=== PATIENT | male | born 1980 | race African-American/Black ===

== ENCOUNTER 2017-07-05 18:14 | Emergency (ER) | payer MEDICAID ==
[~2017-07-05] VITALS: Ht 180.3 cm; Wt 168.0 kg
[2017-07-05 21:40] LABS: CLARITY URINE CLEAR (CLEAR); COLOR URINE YELLOW (YELLOW); GLUCOSE URINE NEGATIVE (NEGATIVE); KETONES URINE NEGATIVE (NEGATIVE); LEUKOCYTE ESTERASE URINE 2+ (NEGATIVE); NITRITE URINE NEGATIVE (NEGATIVE); OCCULT BLOOD URINE 2+ (NEGATIVE); PROTEIN URINE TRACE (NEGATIVE); SPECIFIC GRAVITY URINE 1.016 (1.005-1.030)
[2017-07-06] MEDS ORDERED: LIDOCAINE HCL 1% 20ML VIAL (Pyxis) INJ INFIL ONE (00:45)
[2017-07-06] MEDS ORDERED: CEFTRIAXONE SODIUM 1 G/VIAL IM ONE (00:45)
[2017-07-06 01:00] VITALS: BP 145/93
== END 2017-07-06 01:17 | disposition home or self-care (01) ==
LOC: ER 18:14
DX: N39.0 Urinary tract infection, site not specified (principal); M54.9 Dorsalgia, unspecified; E78.00 Pure hypercholesterolemia, unspecified; I11.0 Hypertensive heart disease with heart failure; F17.210 Nicotine dependence, cigarettes, uncomplicated
CPT/HCPCS: 76770; 81001; 96372; 99285; J0696; J3490

== ENCOUNTER 2020-11-08 14:41 | Inpatient (IN) | payer MEDICAID ==
[~2020-11-08] VITALS: Ht 172.7 cm; Wt 142.9 kg
[2020-11-08] MEDS ORDERED: ONDANSETRON HCL 4MG/2ML INJ IV STA (15:37)
[2020-11-08] MEDS ORDERED: MORPHINE SULFATE 4 MG/ML CPJ (NOT FOR IM USE) IV STA (15:37)
[2020-11-08] MEDS ORDERED: VANCOMYCIN 1 G PREMIX 200 ML IV ONE (15:45)
[2020-11-08] MEDS ORDERED: PIPERACILLIN/TAZ 3.375G PREMIX 50 ML IV ONE (15:45)
[2020-11-08 16:20] LABS: BASOPHILS % 1.3 % (0.0-2.0); CHLORIDE 103 mEq/L (98-107); EOSINOPHILS % 2.4 % (0.0-5.0); HEMATOCRIT. 35.7 % (42.0-52.0); HEMOGLOBIN. 12.1 g/dL (14.0-18.0); LYMPHOCYTES % 14.5 % (20.0-50.0); MEAN CORPUSCULAR HEMOGLOBIN 29.5 pg (28.0-32.0); MEAN CORPUSCULAR VOLUME 86.9 fL (80.0-94.0); MEAN PLATELET VOLUME 7.5 fl (7.4-10.4); MONOCYTES % 6.2 % (2.0-8.0); NEUTROPHILS % 75.6 % (40.0-76.0); PLATELET 282 x1000/uL (130-400); RED BLOOD CELL COUNT 4.11 mill/uL (4.7-6.1)
[2020-11-08 16:34] LABS: INR 1.3; PARTIAL THROMBOPLASTIN TIME 31.5 sec (23.4-31.0); PROTHROMBIN TIME 13.9 sec (9.6-11.0)
[2020-11-08] MEDS ORDERED: ASPIRIN 325MG EC TABLET PO ONE (18:15)
[2020-11-08] MEDS ORDERED: MORPHINE SULFATE 4 MG/ML CPJ (NOT FOR IM USE) IV ONE (18:15)
[2020-11-08] MEDS ORDERED: MORPHINE SULFATE 2 MG/ML CPJ (NOT FOR IM USE) IV PRN (20:06)
[2020-11-08] MEDS ORDERED: LORAZEPAM 2MG/ML CPJ IV PRN (22:00)
[2020-11-08] MEDS: MORPHINE SULFATE 4 MG/ML CPJ (NOT FOR IM USE) IV PRN (22:09)
[2020-11-09] VITALS (8 sets, daily range): BP systolic 102–142; BP diastolic 53–82
[2020-11-09 00:13] LABS: CLARITY URINE CLEAR (CLEAR); COLOR URINE DARK YELLOW (YELLOW); KETONES URINE TRACE (NEGATIVE); LEUKOCYTE ESTERASE URINE 2+ (NEGATIVE); NITRITE URINE NEGATIVE (NEGATIVE); OCCULT BLOOD URINE 2+ (NEGATIVE); PROTEIN URINE 1+ (NEGATIVE); SPECIFIC GRAVITY URINE 1.017 (1.005-1.030)
[2020-11-09] MEDS ORDERED: ONDANSETRON HCL 4MG/2ML INJ IV PRN (08:45)
[2020-11-09] MEDS ORDERED: CEFTRIAXONE 1 G PREMIX 50 ML IV SCH (08:45)
[2020-11-09] MEDS: MORPHINE SULFATE 4 MG/ML CPJ (NOT FOR IM USE) IV PRN ×2 (10:59→22:20)
[2020-11-09] MEDS: CEFTRIAXONE 1,000 MG in DEXTROSE 5% WATER 50 ML IV SCH (11:16)
[2020-11-09] MEDS ORDERED: VANCOMYCIN 1250MG in DEXTROSE 5% WATER 250ML IV SCH (12:00)
[2020-11-09] MEDS ORDERED: FUROSEMIDE 40MG/4ML VIAL IVP NR (12:45)
[2020-11-09 15:58] LABS: BASOPHILS % 0.9 % (0.0-2.0); HEMATOCRIT. 35.7 % (42.0-52.0); LYMPHOCYTES % 12.8 % (20.0-50.0); MEAN CORPUSCULAR HEMOGLOBIN 29.3 pg (28.0-32.0); MEAN PLATELET VOLUME 7.2 fl (7.4-10.4); NEUTROPHILS % 75.3 % (40.0-76.0); PLATELET 292 x1000/uL (130-400); RED CELL DISTRIBUTION WIDTH 20.4 % (11.6-14.6)
[2020-11-09] MEDS ORDERED: FURO-151 PO (18:49)
[2020-11-09] MEDS ORDERED: ASPI-1497 MT (18:49)
[2020-11-09] MEDS ORDERED: CARV25TA47 PO (18:49)
[2020-11-09 18:51] LABS: *AMPHETAMINES SCREEN URINE NEGATIVE (NEGATIVE); *BARBITURATES SCREEN URINE NEGATIVE (NEGATIVE); *BENZODIAZEPINES SCREEN URINE NEGATIVE (NEGATIVE); *COCAINE SCREEN URINE NEGATIVE (NEGATIVE)
[2020-11-09 18:52] LABS: CANNABINOID URINE SCREEN PRESUMTIVE POSITIVE (NEGATIVE); METHADONE URINE SCREEN NEGATIVE (NEGATIVE); OPIATES URINE SCREEN PRESUMTIVE POSITIVE (NEGATIVE); PHENCYCLIDINE URINE SCREEN NEGATIVE (NEGATIVE)
[2020-11-09] MEDS ORDERED: VANCOMYCIN 1 G PREMIX 200 ML IV NR (21:00)
[2020-11-10] VITALS (11 sets, daily range): BP systolic 98–146; BP diastolic 51–113
[2020-11-10] MEDS: MORPHINE SULFATE 4 MG/ML CPJ (NOT FOR IM USE) IV PRN ×4 (02:23→20:51)
[2020-11-10] MEDS: CEFTRIAXONE 1,000 MG in DEXTROSE 5% WATER 50 ML IV SCH (10:23)
[2020-11-10] MEDS ORDERED: HYDROCODONE/ACETAMINOPHEN 5/325MG TABLET PO PRN (12:45)
[2020-11-10] MEDS: VANCOMYCIN 1250MG in DEXTROSE 5% WATER 250ML IV SCH (14:00)
[2020-11-10] MEDS: ENOXAPARIN 40MG/0.4ML SYR SUBCUT SCH (15:09)
[2020-11-10] MEDS: FUROSEMIDE 40MG/4ML VIAL IVP SCH (15:14)
[2020-11-11] VITALS (12 sets, daily range): BP systolic 102–144; BP diastolic 41–89
[2020-11-11] MEDS: MORPHINE SULFATE 4 MG/ML CPJ (NOT FOR IM USE) IV PRN ×6 (01:02→22:06)
[2020-11-11] MEDS: ENOXAPARIN 40MG/0.4ML SYR SUBCUT SCH ×2 (03:27→14:12)
[2020-11-11 06:08] LABS: BASOPHILS % 2.1 % (0.0-2.0); EOSINOPHILS % 2.8 % (0.0-5.0); HEMATOCRIT. 33.9 % (42.0-52.0); HEMOGLOBIN. 11.5 g/dL (14.0-18.0); LYMPHOCYTES % 27.3 % (20.0-50.0); MEAN CORPUSCULAR HEMOGLOBIN 29.7 pg (28.0-32.0); MEAN CORPUSCULAR VOLUME 87.6 fL (80.0-94.0); MEAN PLATELET VOLUME 7.4 fl (7.4-10.4); MONOCYTES % 13.2 % (2.0-8.0); NEUTROPHILS % 54.6 % (40.0-76.0); PLATELET 290 x1000/uL (130-400); RED BLOOD CELL COUNT 3.87 mill/uL (4.7-6.1); RED CELL DISTRIBUTION WIDTH 20.5 % (11.6-14.6)
[2020-11-11 06:19] LABS: CHLORIDE 102 mEq/L (98-107)
[2020-11-11] MEDS: VANCOMYCIN 1250MG in DEXTROSE 5% WATER 250ML IV SCH (09:13)
[2020-11-11] MEDS: FUROSEMIDE 40MG/4ML VIAL IVP SCH (09:13)
[2020-11-11] MEDS: CEFTRIAXONE 1,000 MG in DEXTROSE 5% WATER 50 ML IV SCH (10:58)
[2020-11-11] MEDS: CARVEDILOL 3.125 MG TABLET PO SCH (21:00)
[2020-11-12] VITALS (7 sets, daily range): BP systolic 102–159; BP diastolic 62–98
[2020-11-12] MEDS: MORPHINE SULFATE 4 MG/ML CPJ (NOT FOR IM USE) IV PRN ×3 (03:21→14:56)
[2020-11-12] MEDS: ENOXAPARIN 40MG/0.4ML SYR SUBCUT SCH ×2 (03:21→14:47)
[2020-11-12] MEDS: VANCOMYCIN 1250MG in DEXTROSE 5% WATER 250ML IV SCH (07:06)
[2020-11-12] MEDS: MEROPENEM 1,000 MG in SODIUM CHLORIDE 0.9% 100 ML IV SCH ×3 (07:07→20:43)
[2020-11-12] MEDS: LOSARTAN POTASSIUM 25 MG TABLET PO SCH (08:05)
[2020-11-12] MEDS: FUROSEMIDE 40MG/4ML VIAL IVP SCH (08:05)
[2020-11-12] MEDS: CARVEDILOL 3.125 MG TABLET PO SCH ×2 (08:06→20:42)
[2020-11-12 09:04] LABS: HEMATOCRIT 34.2 % (42.0-52.0); HEMOGLOBIN 11.4 g/dL (14.0-18.0); MEAN CORPUSCULAR HEMOGLOBIN 29.2 pg (28.0-32.0); MEAN CORPUSCULAR VOLUME 87.8 fL (80.0-94.0); PLATELET 284 x1000/uL (130-400); RED CELL DISTRIBUTION WIDTH 20.4 % (11.6-14.6)
[2020-11-12 09:06] LABS: CHLORIDE 103 mEq/L (98-107)
[2020-11-12] MEDS ORDERED: HYDROCODONE/ACETAMINOPHEN 10/325MG TABLET PO PRN (18:15)
[2020-11-12] MEDS: KETOROLAC 15MG/ML VIAL IV PRN (23:22)
[2020-11-13] VITALS: BP 91/61
[2020-11-13] MEDS: VANCOMYCIN 1250MG in DEXTROSE 5% WATER 250ML IV SCH ×2 (00:34→14:22)
[2020-11-13] MEDS: ENOXAPARIN 40MG/0.4ML SYR SUBCUT SCH ×2 (02:37→14:22)
[2020-11-13 04:00] VITALS: BP 99/60
[2020-11-13] MEDS: MEROPENEM 1,000 MG in SODIUM CHLORIDE 0.9% 100 ML IV SCH ×3 (05:50→23:03)
[2020-11-13 08:00] VITALS: BP 93/56
[2020-11-13] MEDS: CARVEDILOL 3.125 MG TABLET PO SCH ×2 (09:00→21:00)
[2020-11-13] MEDS: LOSARTAN POTASSIUM 25 MG TABLET PO SCH (09:00)
[2020-11-13] MEDS: FUROSEMIDE 40MG/4ML VIAL IVP SCH (09:07)
[2020-11-13] MEDS: ACETAMINOPHEN 325MG TABLET PO PRN (09:07)
[2020-11-13] MEDS: KETOROLAC 15MG/ML VIAL IV PRN ×2 (10:48→23:04)
[2020-11-13 12:00] VITALS: BP 95/57
[2020-11-13] MEDS: OXYCODONE HCL/ACETAMINOPHEN 5/325MG TABLET PO PRN (14:23)
[2020-11-13 16:00] VITALS: BP 105/62
[2020-11-13 20:00] VITALS: BP 90/56
[2020-11-14] VITALS: BP 97/53
[2020-11-14] MEDS: OXYCODONE HCL/ACETAMINOPHEN 5/325MG TABLET PO PRN ×3 (02:29→22:25)
[2020-11-14 04:00] VITALS: BP 97/60
[2020-11-14] MEDS: MEROPENEM 1,000 MG in SODIUM CHLORIDE 0.9% 100 ML IV SCH (06:05)
[2020-11-14 08:26] VITALS: BP 109/62
[2020-11-14] MEDS: FUROSEMIDE 40MG/4ML VIAL IVP SCH (08:28)
[2020-11-14] MEDS: LOSARTAN POTASSIUM 25 MG TABLET PO SCH (08:29)
[2020-11-14] MEDS: CARVEDILOL 3.125 MG TABLET PO SCH ×2 (08:29→21:00)
[2020-11-14] MEDS: ENOXAPARIN 40MG/0.4ML SYR SUBCUT SCH ×2 (08:30→22:26)
[2020-11-14] MEDS: VANCOMYCIN 1250MG in DEXTROSE 5% WATER 250ML IV SCH (08:30)
[2020-11-14 12:00] VITALS: BP 94/59
[2020-11-14 16:00] VITALS: BP 101/63
[2020-11-15] VITALS: BP 102/46
[2020-11-15] MEDS: MEROPENEM 1,000 MG in SODIUM CHLORIDE 0.9% 100 ML IV SCH ×2 (00:20→14:00)
[2020-11-15 04:00] VITALS: BP 95/56
[2020-11-15] MEDS: VANCOMYCIN 1250MG in DEXTROSE 5% WATER 250ML IV SCH (04:16)
[2020-11-15] MEDS: ACETAMINOPHEN 325MG TABLET PO PRN (04:42)
[2020-11-15 06:21] LABS: CHLORIDE 103 mEq/L (98-107)
[2020-11-15 08:00] VITALS: BP 86/63
[2020-11-15] MEDS: FUROSEMIDE 40MG/4ML VIAL IVP SCH (08:19)
[2020-11-15] MEDS: CARVEDILOL 3.125 MG TABLET PO SCH (08:19)
[2020-11-15] MEDS: LOSARTAN POTASSIUM 25 MG TABLET PO SCH (08:20)
[2020-11-15] MEDS: ENOXAPARIN 40MG/0.4ML SYR SUBCUT SCH (08:21)
[2020-11-15] MEDS ORDERED: SULFAMETHOXAZOLE/TRIMETHOPRIM 800/160MG TABLET PO SCH (09:00)
[2020-11-15] MEDS ORDERED: SULF-288 MT ×2 (10:50→10:56)
[2020-11-15] MEDS: OXYCODONE HCL/ACETAMINOPHEN 5/325MG TABLET PO PRN (11:16)
[2020-11-15 12:00] VITALS: BP 99/59
[2020-11-15] MEDS ORDERED: FURO-151 PO (12:20)
[2020-11-15] MEDS ORDERED: POTA20TA82 MT (12:20)
[2020-11-15] MEDS ORDERED: LOSA25TA3 PO (12:20)
[2020-11-15] MEDS ORDERED: ASPI-1497 MT (12:20)
[2020-11-15] MEDS ORDERED: COR3 PO (12:20)
[2020-11-15] MEDS ORDERED: OXYC-523 PO (12:21)
[2020-11-15 14:27] VITALS: BP 99/59
[2020-11-15 16:00] VITALS: BP 102/58
== END 2020-11-15 17:18 | disposition home health service (06) | DRG 383 ==
LOC: ER 15:10 → MICUSO 18:04 → EDBEDREQ 18:15 → EDBEDREQTM 18:15 → 5EST 11-09 08:25 → 6EST 11-12 12:35
PROVIDERS: ADMIT Internal Medicine; ATTEND Internal Medicine
DX: L03.115 Cellulitis of right lower limb (principal); L03.116 Cellulitis of left lower limb; I11.0 Hypertensive heart disease with heart failure; E43 Unspecified severe protein-calorie malnutrition; N17.0 Acute kidney failure with tubular necrosis; I50.23 Acute on chronic systolic (congestive) heart failure; D64.9 Anemia, unspecified; E87.1 Hypo-osmolality and hyponatremia; E66.01 Morbid (severe) obesity due to excess calories; F17.200 Nicotine dependence, unspecified, uncomplicated; I27.20 Pulmonary hypertension, unspecified; N39.0 Urinary tract infection, site not specified; I42.9 Cardiomyopathy, unspecified; I87.8 Other specified disorders of veins; E80.6 Other disorders of bilirubin metabolism; I34.0 Nonrheumatic mitral (valve) insufficiency; I45.10 Unspecified right bundle-branch block; L97.919 Non-pressure chronic ulcer of unspecified part of right lower leg with unspecified severity; L97.929 Non-pressure chronic ulcer of unspecified part of left lower leg with unspecified severity; Z68.42 Body mass index [BMI] 45.0-49.9, adult; I73.9 Peripheral vascular disease, unspecified
CPT/HCPCS: 36415; 71045; 80048; 80053; 80202; 80305; 81003; 83605; 83880; 84145; 84484; 85025; 85027; 87077; 87186; 93005; 93306; 93923; 93970; 97162; 99285; C1893; J0696; J1650; J1885; J1940; J2060; J2185; J2270; J2405; J2543; J3370; J7040; J7050; J7060